=== PATIENT | female | born 1980 | race Caucasian/White ===

== ENCOUNTER 2019-11-23 11:00 | Emergency (ER) | payer MEDICARE ==
[~2019-11-23] VITALS: Ht 167.6 cm; Wt 86.2 kg
--- NOTE | ~2019-11-23 | EMS ---
[address] [address] EMS Patient Care Report Name: ZAHRA LINARES Room: [facility]#: [id number] Admission: 11/23/19 Attend Phys: Discharge: Date of : 82 Report #: [id number] THIS REPORT FOR: //name// Report Transmitted: 11/23/2019 11:32 EMS Care Summary [facility] Incident [id number] @ 11/23/2019 10:25 Incident Location [id number] [place] [address] Patient ZAHRA LINARES Female, 39 Years 1980 Patient Address [address] [place] [address] Patient History Cerebral palsy, unspecified, Patient Allergies No known allergies, Patient Medications Labetalol, Lisinopril, Chief Complaint Chest Pain Disposition Transported No Lights/[place] Dispatch Reason Breathing Problem Transported To [facility] Narrative Dispatched to address noted for chest pain and shortness of breath. [facility] en route at time noted. Arrived and found female patient sitting on her sofa,complaining of chest pain for the last 2 days. Patient stated history as noted and also stated that she had flank pain and a headache yesterday. Today [address] [address] EMS Patient Care Report Name: ZAHRA LINARES [id number] Admission: 11/23/19 Attend Phys: Discharge: Date of : 82 Report #: [id number] she only complains of headache pain with the current chest pain. Patient was assisted to stretcher and buckled in. Once in ambulance, vitals where started. 12 lead was normal. IV obtained with blood glucose as noted. Patient was hypertensive with a history of. patient stated the pain was non reproducible to palpation and that it felt like, "A brick is sitting on my chest." ASA given as noted. [facility] was chosen due to hospital status. While en route, vitals where taken again with nothing eventful noted while en route. Radio report was given at time noted. Arrived and took patient to room 5. Patient was moved to bed and RN was given verbal report. RN signed for patient and patient signed for self. END REPORT EMT-P Marty Vega Initial Vitals @10:57Pain: 09/02, @10:32Pain: 09/02, @10:46SpO2: 99, @10:51SpO2: 97, @10:51SpO2: 97, @10:42 @10:38P: 75,R: 16,BP: 166/123, @10:51P: 70,R: 16,BP: 169/96, @10:38GCS: 15, @10:51GCS: 15, @10:32 @10:45Glucose: 141, Assessments @10:32MENTAL:SKIN:HEENT:LUNG SOUNDS:ABDOMEN:PELVIS//GI:EXTREMITIES:PULSE:NEURO: Impression Angina pectoris, unspecified Procedures @10:45Aspirin - 324.000 Milligrams (mg) - OralResponse: Unchanged@10:43 cc () Site: Antecubital-LeftResponse: UnchangedSucceeded@10:4212-Lead ECGResponse: UnchangedSucceeded Timeline 10:32,Call Received 10:25,Dispatch Notified 10:25,Psap Call 10:25,Dispatched 10:25,En Route 10:29,On Scene 10:32,At Patient 10:32,BP: / M,PULSE: ,RR: R,SPO2: Ox,ETCO2: ,BG: ,PAIN: 7,GCS: , [place] [address] EMS Patient Care Report Name: ZAHRA LINARES GAYE Room: [facility]#: [id number] Admission: 11/23/19 Attend Phys: Discharge: Date of : 82 Report #: [id number] 10:32,BP: / M,PULSE: ,RR: R,SPO2: Ox,ETCO2: ,BG: ,PAIN: ,GCS: , 10:38,BP: 166/123 M,PULSE: 75,RR: 16 R,SPO2: Ox,ETCO2: ,BG: ,PAIN: ,GCS: , 10:38,BP: / M,PULSE: ,RR: R,SPO2: Ox,ETCO2: ,BG: ,PAIN: ,GCS: 15, 10:42,12-Lead ECG,Response: UnchangedSucceeded, 10:42,BP: / M,PULSE: ,RR: R,SPO2: Ox,ETCO2: ,BG: ,PAIN: ,GCS: , 10:43, cc Site: Antecubital-Left,Response: UnchangedSucceeded, 10:45,Depart Scene 10:45,Aspirin - 324.000 Milligrams (mg) - Oral,Response: Unchanged 10:45,BP: / M,PULSE: ,RR: R,SPO2: Ox,ETCO2: ,B,PAIN: ,GCS: , 10:46,BP: / M,PULSE: ,RR: R,SPO2: 99 Ox,ETCO2: ,BG: ,PAIN: ,GCS: , 10:51,BP: / M,PULSE: ,RR: R,SPO2: 97 Ox,ETCO2: ,BG: ,PAIN: ,GCS: , 10:51,BP: / M,PULSE: ,RR: R,SPO2: 97 Ox,ETCO2: ,BG: ,PAIN: ,GCS: , 10:51,BP: 169/96 M,PULSE: 70,RR: 16 R,SPO2: Ox,ETCO2: ,BG: ,PAIN: ,GCS: , 10:51,BP: / M,PULSE: ,RR: R,SPO2: Ox,ETCO2: ,BG: ,PAIN: ,GCS: 15, 10:57,BP: / M,PULSE: ,RR: R,SPO2: Ox,ETCO2: ,BG: ,PAIN: 7,GCS: , 10:59,At Destination 11:05,Call Closed Disclaimer v1.1 Copyright 2020 [employer] This EMS Care Summary contains data elements from the applicable legal record (which may be displayed differently). It is designed to provide pertinent information for the following purposes: continuity of care, clinical quality, and state data reporting. The complete legal record is available to ED staff and administrators of the receiving hospital in [employer]'s Patient Tracker. All data is provided "as is."
[~2019-11-23 11:00] MED LIST: ADULT LOW DOSE81 MG PO; BLOOD PRESSURE X 2; PERCODAN TABLE1 EACH PO
[2019-11-23] MEDS ORDERED: NORVASC 2.5 MG2.5 M1 PO (11:14)
[2019-11-23] MEDS ORDERED: LABETALOL HCL100 MG PO (11:14)
[2019-11-23] MEDS ORDERED: PRINIVIL10 MG PO (11:15)
[2019-11-23 11:32] LABS: ABSOLUTE BASOPHILS 0.1 thou/uL (0.0-0.2); ABSOLUTE EOSINOPHILS 0.1 thou/uL (0.0-0.7); ABSOLUTE LYMPHOCYTES 2.5 thou/uL (0.8-5.3); ABSOLUTE MONOCYTES 0.5 thou/uL (0.0-1.2); ABSOLUTE NEUTROPHILS 4.1 thou/uL (1.6-8.1); BASOPHILS 0.7 %; EOSINOPHILS 1.2 %; HEMATOCRIT 38.7 % (37.0-47.0); HEMOGLOBIN 13.8 gm/dL (12.0-15.0); LYMPHOCYTES 34.2 %; MCH 31.9 pg (26.0-34.0); MCHC 35.6 g/dL (28.0-37.0); MCV 89.7 fL (80.0-100.0); MONOCYTES 7.3 %; MPV 8.1 fl. (7.2-11.1); NUCLEATED RBCS 0 /100WBC; PLATELET COUNT* 279 thou/uL (150-400); POLYS 56.6 %; RBC 4.31 mil/uL (4.20-5.00); RDW-CV 13.2 % (10.5-14.5); WBC 7.2 thou/uL (4.0-11.0)
[2019-11-23 11:42] LABS: CREATININE 0.9 mg/dL (0.6-1.3); POTASSIUM 3.8 mmol/L (3.5-5.1)
[2019-11-23 11:52] LABS: ALBUMIN 3.8 g/dL (3.4-5.0); MAGNESIUM 1.7 mg/dL (1.8-2.4); TOTAL BILIRUBIN 0.4 mg/dL (<0.1-1.0); TOTAL PROTEIN 7.6 g/dL (6.4-8.2)
[2019-11-23] MEDS ORDERED: NORCO 5-325 TA1 EAC2 PO (14:14)
[2019-11-23 14:28] VITALS: BP 149/95
--- NOTE | 2019-11-23 15:30 | EKG ---
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
== END 2019-11-23 14:28 | disposition home or self-care (01) ==
LOC: M.ERS 11:00
PROVIDERS: Emergency Medicine Emergency Medical Services
DX: R07.89 Other chest pain (principal); I10 Essential (primary) hypertension; Z90.49 Acquired absence of other specified parts of digestive tract